=== PATIENT | female | born 1955 | race Caucasian/White ===

== ENCOUNTER 2016-12-03 12:14 | Inpatient (IN) | payer BC ==
[~2016-12-03] VITALS: Ht 165.1 cm; Wt 54.0 kg
[~2016-12-03 12:14] MED LIST: CLARITIN,ALAVAR10 MG PO; CRESTOR10 MG PO; CRESTOR20 MG PO; FISH OIL 1,2001 EAC3 PO; LEVO-T75 MCG PO; LO-DOSE ASPIRIN81 M2 PO; VITAMIN D-32000 UNI2 PO
[2016-12-03 12:46] VITALS: BP 131/80
[2016-12-03 20:00] LABS: HEMATOCRIT 39.1 % (36.0-46.0); MCH 27.3 PG (29.0-34.0); MCHC 32.2 G/DL (30.0-36.0); MCV 84.8 FL (83-99); MEAN PLAT.VOLUME 9.7 uM^3 (9.5-12.4); PLATELET COUNT 237 K/uL (156-360); RBC DIS.WIDTH-CV 16.4 % (11.8-14.6); RED BLOOD COUNT 4.61 M/uL (3.80-5.20); WHITE BLOOD COUNT 17.1 K/uL (4.1-10.2)
[2016-12-03 20:23] LABS: ANION GAP 10 MEQ/L (2-14); CHLORIDE 102 MEQ/L (99-109); GFR ESTIMATE (CALCULATED) > 59 mL/min/; GLUCOSE 144 mg/dL (70-99); POTASSIUM 3.9 MEQ/L (3.7-5.4); SAMPLE HEMOLYSIS CHECK 0; SAMPLE ICTERIC CHECK 0; SAMPLE LIPEMIA CHECK 0; SODIUM 137 MEQ/L (136-147); UREA NITROGEN (BUN) 11 mg/dL (9-23)
[2016-12-03 20:58] VITALS: BP 134/52
[2016-12-04 00:11] VITALS: BP 120/72
[2016-12-04 04:19] VITALS: BP 120/72
[2016-12-04 07:07] LABS: HEMATOCRIT 37.1 % (36.0-46.0); MCH 27.8 PG (29.0-34.0); MCHC 32.3 G/DL (30.0-36.0); MCV 85.9 FL (83-99); MEAN PLAT.VOLUME 10.2 uM^3 (9.5-12.4); PLATELET COUNT 220 K/uL (156-360); RBC DIS.WIDTH-CV 16.6 % (11.8-14.6); RBC DIS.WIDTH-SD 51.9 % (39-53); RED BLOOD COUNT 4.32 M/uL (3.80-5.20); WHITE BLOOD COUNT 13.1 K/uL (4.1-10.2)
[2016-12-04 07:40] VITALS: BP 90/55
[2016-12-04 09:10] LABS: ANION GAP 6 MEQ/L (2-14); CHLORIDE 101 MEQ/L (99-109); GFR ESTIMATE (CALCULATED) > 59 mL/min/; GLUCOSE 119 mg/dL (70-99); POTASSIUM 4.3 MEQ/L (3.7-5.4); SAMPLE HEMOLYSIS CHECK 0; SAMPLE ICTERIC CHECK 0; SAMPLE LIPEMIA CHECK 0; SODIUM 137 MEQ/L (136-147); UREA NITROGEN (BUN) 8 mg/dL (9-23)
[2016-12-04] MEDS ORDERED: TRAMADOL HCL50 MG PO (10:12)
== END 2016-12-04 11:29 | disposition home or self-care (01) | DRG 743 ==
LOC: SDC 12:14 → 2EAST 16:46 → 2SOUTH 16:46 → 2EAST 20:29
PROVIDERS: Obstetrics & Gynecology Gynecologic Oncology
DX: D25.1 Intramural leiomyoma of uterus (principal); N89.0 Mild vaginal dysplasia; N80.0 Endometriosis of uterus; N89.9 Noninflammatory disorder of vagina, unspecified; E89.0 Postprocedural hypothyroidism; E78.00 Pure hypercholesterolemia, unspecified
CPT/HCPCS: 36415; 80048; 85027; 86850; 86900; 86901; 86920; 88307; 88342 TC; J0171; J0330; J0690; J1100; J1170; J1885; J1940; J2250; J2270; J2405; J2710; J3010